=== PATIENT | female | born 1990 | race African-American/Black ===

== ENCOUNTER 2018-08-27 10:51 | Emergency (ER) | payer SELFPAY ==
[2018-08-27] MEDS ORDERED: PHENYTOIN SODIUM INJ/PF 250 MG/5 ML SDV IV ONE (10:59)
--- NOTE | 2018-08-27 11:00 | ER Document Report ---
ED General - General Stated Complaint: SEIZURES Time Seen by Provider: 08/27/18 10:58 Mode of Arrival: Medic Information source: Friend, Emergency Med Personnel Notes: 27-year-old female with known seizure disorder on Dilantin presents after a seizure while driving to work just prior to arrival. EMS reports that the patient's girlfriend called them after the patient began seizing. Patient's girlfriend tried to lower her to the ground but states that they both fell backwards and the patient struck her head on the concrete several times. Patient has been compliant with her Dilantin which is 300 mg nightly. She states that she recently moved from [place] and is trying to get neurology care. They did suggest on her last visit that she increase her Dilantin to 360 mg but she has been unable to do so. She denies any recent illness but reports constipation, abdominal discomfort. Patient complaining of an aching headache. - HPI Onset: Just prior to arrival Onset/Duration: Sudden Quality of pain: Achy Severity: Mild Associated symptoms: Headache, Other - Abdominal pain, constipation Exacerbated by: Denies Relieved by: Denies Similar symptoms previously: Yes Recently seen / treated by doctor: Yes - Related Data Allergies/Adverse Reactions: levetiracetam [From [facility]] Allergy (Verified 08/27/18 11:29) Past Medical History - General Information source: Patient, Friend - Social History Smoking Status: Never Smoker Frequency of alcohol use: None Drug Abuse: None Lives with: Spouse/Significant other Family History: Reviewed & Not Pertinent Patient has suicidal ideation: No Patient has homicidal ideation: No Neurological Medical History: Reports: Hx Seizures Review of Systems - Review of Systems Notes: REVIEW OF SYSTEMS: CONSTITUTIONAL : Denies fever, chills, or sweats. Denies recent illness. Denies weight loss, recent hospitalizations. EENT: Denies visual changes, eye pain. Denies sore throat, oral lesions, difficulty swallowing. CARDIOVASCULAR: Denies chest pain. Denies palpitations. Denies lower extremity edema. RESPIRATORY: Denies cough. Denies shortness of breath, wheezing. GASTROINTESTINAL: Denies abdominal distention. Denies nausea, vomiting, or diarrhea. Denies blood in vomitus, stools, or per rectum. Denies black, tarry stools. Denies constipation. GENITOURINARY: Denies difficulty urinating, painful urination, frequency, blo od in urine, or vaginal discharge. MUSCULOSKELETAL: Denies back or neck pain or stiffness. Denies joint pain or swelling. SKIN: Denies rash, lesions or sores. HEMATOLOGIC : Denies easy bruising or bleeding. LYMPHATIC: Denies swollen glands. NEUROLOGICAL: Denies confusion or altered mental status. Denies loss of consciousness. Denies dizziness or lightheadedness. Denies weakness or par alysis. Denies problems difficulty with ambulation, slurred speech. Denies sensory loss, numbness, or tingling. PSYCHIATRIC: Denies anxiety or stress. Denies depression, suicidal ideation, or homicidal ideation. Denies visual or auditory hallucinations. Physical Exam - Vital signs Vitals: Pulse Resp BP Pulse Ox 97 18 104/54 L 100 08/27/18 11:40 08/27/18 11:40 08/27/18 11:40 08/27/18 11:40 - Notes Notes: PHYSICAL EXAMINATION: GENERAL: Somnolent but arousable HEAD: Atraumatic, normocephalic. EYES: Pupils equal round and reactive to light, extraocular movements intact, conjunctiva are normal. ENT: Nares patent, oropharynx clear without exudates. Moist mucous membranes. NECK: Normal range of motion, supple without lymphadenopathy LUNGS: Breath sounds clear to auscultation bilaterally and equal. No wheezes rales or rhonchi. HEART: Regular rate and rhythm without murmurs ABDOMEN: Soft, nontender, nondistended abdomen. No guarding, no rebound. No masses appreciated. Female : deferred Musculoskeletal: Normal range of motion, no pitting or edema. No cyanosis. NEUROLOGICAL: Cranial nerves grossly intact. Slowed speech speech, normal gait. Normal sensory, motor exams PSYCH: Normal mood, normal affect. SKIN: Warm, Dry, normal turgor, no rashes or lesions noted. Course - Re-evaluation Re-evalutation: 08/27/18 12:16 Laboratory 08/27/18 08/27/18 08/27/18 11:00 11:00 11:00 WBC 5.8 RBC 4.69 Hgb 12.9 Hct 39.7 MCV 85 MCH 27.6 MCHC 32.6 RDW 15.9 H Plt Count 317 Seg Neutrophils % 59.6 Lymphocytes % 28.0 Monocytes % 6.8 Eosinophils % 5.0 Basophils % 0.6 Absolute Neutrophils 3.4 Absolute Lymphocytes 1.6 Absolute Monocytes 0.4 Absolute Eosinophils 0.3 Absolute Basophils 0.0 Sodium 142.0 Potassium 4.3 Chloride 110 H Carbon Dioxide 20 L Anion Gap 12 BUN 7 Creatinine 0.86 Est GFR ( Amer) > 60 Est GFR (Non-Af Amer) > 60 Glucose 102 Calcium 9.3 Total Bilirubin 0.4 Direct Bilirubin 0.3 Neonat Total Bilirubin Not Reportable Neonat Direct Bilirubin Not Reportable Neonat Indirect Bili Not Reportable AST 35 ALT 7 L Alkaline Phosphatase 74 Total Protein 8.3 H Albumin 4.7 Beta HCG, Quant < 2.39 Total Beta HCG NEGATIVE Phenytoin 3.7 L 08/27/18 12:19 08/27/18 12:21 08/27/18 13:26 Acute Abdomen Series 08/27/18 12:09 IMPRESSION: NO RADIOGRAPHIC EVIDENCE FOR ACUTE ABDOMINAL DISEASE. CONSTIPATION. Head CT 08/27/18 12:09 IMPRESSION: NORMAL BRAIN CT WITHOUT CONTRAST. EVIDENCE OF ACUTE STROKE: NO. Temp Pulse Resp BP Pulse Ox 97 18 104/54 L 100 08/27/18 11:40 08/27/18 11:40 08/27/18 11:40 08/27/18 11:40 08/27/18 17:52 27-year-old female with known seizure disorder presents after a seizure just prior to arrival. Reports that she is taking 300 mg of Dilantin nightly. Recently has moved here from [place] and does not have neurology follow-up. Denies any recent illness but reports constipation and difficulty with bowel movements. Vital signs reviewed upon arrival shows mild hypotension. And EMS reports patient received 5 mg of IM Versed, 2 mg of IV Ativan. Patient initially somnolent, consistent with postictal state. Dilantin level was markedly low. Patient did get a Dilantin load of 300 mg IV. Social work consult placed for help with neurology follow-up. Findings discussed with the patient and her partner. Increase Dilantin to 200 mg twice daily. Patient was evaluated and treated as appropriate for the patient's presenting symptoms and complaint, with consideration of any critical or life threatening conditions that may be associated with their obtained history and exam as noted above. All results were discussed with patient. Patient provided the opportunity to ask questions, and express concerns. Patient was educated on treatments based on their presumed diagnosis as noted above. At this time we will discharge the patient with return precautions and follow-up recommendations. Verbal discharge instructions given a the bedside. Medication warnings reviewed. Patient is in agreement with this plan and has verbalized understanding of return precautions. After careful consideration I feel that that patient can be safely discharged from the emergency department, they were advised to followup with a primary care physician in 2-3 days. Dictation on this chart was performed using voice recognition software and may result in unintended grammatical, spelling, syntax or errors. 08/27/18 18:00 Prescription written in error and patient contacted regarding taking the me dication twice a day 200 mg p.o. - Vital Signs Vital signs: Temp Pulse Resp BP Pulse Ox 97 18 104/54 L 100 08/27/18 11:40 08/27/18 11:40 08/27/18 11:40 08/27/18 11:40 - Laboratory Result Diagrams: 08/27/18 11:00 08/27/18 11:00 Laboratory results interpreted by me: 08/27/18 08/27/18 08/27/18 11:00 11:00 11:00 RDW 15.9 H Chloride 110 H Carbon Dioxide 20 L ALT 7 L Total Protein 8.3 H Phenytoin 3.7 L - Diagnostic Test Radiology reviewed: Image reviewed, Reports reviewed - EKG Interpretation by Ne EKG shows normal: Sinus rhythm Rate: Tachycardia Rhythm: NSR When compared to previous EKG there are: Previous EKG unavailable Discharge - Discharge Clinical Impression: Subtherapeutic serum dilantin level, Seizure Headache Qualifiers: Headache type: unspecified Headache chronicity pattern: unspecified pattern Intractability: not intractable Qualified Code(s): R51 - Headache Constipation Qualifiers: Constipation type: unspecified constipation type Qualified Code(s): K59.00 - Constipation, unspecified Condition: Good Disposition: HOME, SELF-CARE Instructions: Headache ([facility]), Seizure, Known Epileptic ([facility]) Additional Instructions: Your Dilantin level was below the therapeutic range. Please take your medication as prescribed. We will increase her Dilantin to 400 mg daily. Our social work case manager is working on getting you a neurology appointment. He will first have to establish primary care which she is also working on. She will be in contact with you in the next 1 to 2 days. Prescriptions: Phenytoin Sodium Extended [Dilantin 100 mg Capsule.er] 300 mg PO BID #90 capsule Polyethylene Glycol 3350 [Miralax Powder 17 gm/Packet] 17 gm PO DAILY #10 powd.pack Forms: Return to Work
[2018-08-27] MEDS ORDERED: DIAZEPAM INJ 10 MG/2 ML DISP.SYRIN ONE (11:12)
[2018-08-27] MEDS ORDERED: LORAZEPAM INJ 2 MG/1 ML VIAL ONE (11:12)
[2018-08-27 11:20] LABS: ABSOLUTE EOSINOPHILS # (AUTO) 0.3 10^3/uL (0.0-0.6); ABSOLUTE LYMPHOCYTES (AUTO) 1.6 10^3/uL (0.5-4.7); ABSOLUTE MONOCYTES (AUTO) 0.4 10^3/uL (0.1-1.4); ABSOLUTE NEUT (AUTO) 3.4 10^3/uL (1.7-8.2); BASOPHILS % (AUTO) 0.6 % (0-2); HEMATOCRIT 39.7 % (36.0-47.0); HEMOGLOBIN 12.9 g/dL (12.0-15.5); MEAN CORPUSCULAR HEMOGLOBIN 27.6 pg (27.0-33.4); MEAN CORPUSCULAR HGB CONC 32.6 g/dL (32.0-36.0); MEAN CORPUSCULAR VOLUME 85 fl (80-97); MONOCYTES % (AUTO) 6.8 % (3-13); PLATELET COUNT 317 10^3/uL (150-450); RED BLOOD COUNT 4.69 10^6/uL (3.72-5.28); RED CELL DISTRIBUTION WIDTH 15.9 % (11.5-14.0); SEGMENTED NEUTROPHILS % (AUTO) 59.6 % (42-78); TOTAL CELLS COUNTED % (AUTO) 100 %; WHITE BLOOD COUNT 5.8 10^3/uL (4.0-10.5)
[2018-08-27 11:44] LABS: ALANINE AMINOTRANSFERASE 7 U/L (9-52); ALBUMIN 4.7 g/dL (3.5-5.0); ALKALINE PHOSPHATASE 74 U/L (38-126); ANION GAP 12 (5-19); ASPARTATE AMINO TRANSFERASE 35 U/L (14-36); BILIRUBIN,DIRECT 0.3 mg/dL (0.0-0.4); BILIRUBIN,TOTAL 0.4 mg/dL (0.2-1.3); BLOOD UREA NITROGEN 7 mg/dL (7-20); CALCIUM 9.3 mg/dL (8.4-10.2); CARBON DIOXIDE 20 mmol/L (22-30); CHLORIDE 110 mmol/L (98-107); GLUCOSE 102 mg/dL (75-110); POTASSIUM 4.3 mmol/L (3.6-5.0); TOTAL PROTEIN 8.3 g/dL (6.3-8.2)
[2018-08-27 11:46] VITALS: BP 104/54
--- NOTE | 2018-08-27 12:45 | RADIOLOGY REPORT (SQ) ---
EXAM DESCRIPTION: CT HEAD WITHOUT COMPLETED DATE/TIME: 08/27/2018 12:31 pm REASON FOR STUDY: trauma after seizure COMPARISON: None. TECHNIQUE: Axial images acquired through the brain without intravenous contrast. Images reviewed wi th bone, brain and subdural windows. Additional sagittal and coronal reconstructions were generated. Images stored on PACS. All CT scanners at this facility use dose modulation, iterative reconstruction, and/or weight based d osing when appropriate to reduce radiation dose to as low as reasonably achievable (ALARA). [facility]: Dose Right [facility]: CareDose [facility]: Dose Right [facility]: Teradose 4D [facility]: Smart xTurion RADIATION DOSE: CT Rad equipment meets quality standard of care and radiation dose reduction techniq ues were employed. CTDIvol: 53.2 mGy. DLP: 991 mGy-cm. mGy. LIMITATIONS: None. FINDINGS: VENTRICLES: Normal size and contour. CEREBRUM: No masses. No hemorrhage. No midline shift. No evidence for acute infarction. Normal gra y/white matter differentiation. No areas of low density in the white matter. CEREBELLUM: No masses. No hemorrhage. No alteration of density. No evidence for acute infarction. EXTRAAXIAL SPACES: No fluid collections. No masses. ORBITS AND GLOBE: No intra- or extraconal masses. Normal contour of globe without masses. CALVARIUM: No fracture. PARANASAL SINUSES: No fluid or mucosal thickening. SOFT TISSUES: No mass or hematoma. OTHER: No other significant finding. IMPRESSION: NORMAL BRAIN CT WITHOUT CONTRAST. EVIDENCE OF ACUTE STROKE: NO. COMMENT: Quality ID # [id number]: Final reports with documentation of one or more dose reduction techniques (e.g., Automated exposure control, adjustment of the mA and/or kV according to patient size, use of iterative reconstruction technique) TECHNICAL DOCUMENTATION: JOB ID: [id number] [employer]- All Rights Reserved Reading location - IP/workstation name: [email or web address]
--- NOTE | 2018-08-27 13:05 | RADIOLOGY REPORT (SQ) ---
EXAM DESCRIPTION: ACUTE ABDOMEN SERIES COMPLETED DATE/TIME: 08/27/2018 12:50 pm REASON FOR STUDY: abd pain constipation COMPARISON: None. NUMBER OF VIEWS: Three views. TECHNIQUE: Frontal chest, supine abdomen and upright/decubitus abdomen radiographic images acquired. LIMITATIONS: None. FINDINGS: CHEST: Lungs clear of infiltrates. FREE AIR: None. No abnormal gas collections. BOWEL GAS PATTERN: Nonobstructive pattern. No dilated loops or air fluid levels. CONSTIPATION: mild. CALCIFICATIONS: No suspicious calcifications. HARDWARE: None in the abdomen. SOFT TISSUES: No gross mass or suggestion of organomegaly. BONES: No acute fracture. No worrisome bone lesions. OTHER: No other significant finding. IMPRESSION: NO RADIOGRAPHIC EVIDENCE FOR ACUTE ABDOMINAL DISEASE. CONSTIPATION. TECHNICAL DOCUMENTATION: JOB ID: [id number] [employer]- All Rights Reserved Reading location - IP/workstation name: [email or web address]
--- NOTE | 2018-08-27 13:17 | EKG REPORT ---
SEVERITY:- OTHERWISE NORMAL ECG - SINUS TACHYCARDIA : Confirmed by: Jerry Mckenna MD 27-Aug-2018 13:16:54
== END 2018-08-27 14:00 | disposition home or self-care (01) ==
LOC: ER 10:51
DX: R56.9 Unspecified convulsions (principal); R51 Headache; K59.00 Constipation, unspecified; Z79.899 Other long term (current) drug therapy
CPT/HCPCS: 99285; 96372; 96374; 36415; 84702; 80185; 85025; 80053; 74022; 70450; 93005; 93010; J2060; J1165

== ENCOUNTER 2018-09-10 13:52 | Emergency (ER) | payer OTHER ==
[2018-09-10] MEDS ORDERED: LORAZEPAM INJ 2 MG/1 ML VIAL ONE (14:02)
[2018-09-10] MEDS ORDERED: PHENYTOIN SODIUM INJ/PF 250 MG/5 ML SDV IV ONE (14:03)
--- NOTE | 2018-09-10 14:18 | ER Document Report ---
ED Seizure - General Stated Complaint: POSSIBLE SEIZURE Time Seen by Provider: 09/10/18 13:59 - HPI Notes: Patient is a 27-year-old female that presents to the emergency department for chief complaint of seizures. Patient has a history of epilepsy and is currently on Dilantin. Her last seizure was about 2 weeks ago and she was evaluated in the emergency room. Patient's partner is at bedside stating she has been compliant with all medications. She believes she has not missed any doses. They are in the process of getting patient established with a local neurologist. Patient had 5 witnessed seizures by EMS lasting 30 seconds to 2 minutes in duration. She did not have recovery of postictal state in between her seizures. Patient had no reported injury or fall during the seizures. HPI provided by EMS and patient's partner Past Medical History: Epilepsy Past Surgical History: Reviewed in chart Social History: Reviewed in chart Family History: Reviewed and noncontributory for presenting illness Allergies: Reviewed, see documented allergy list. REVIEW OF SYSTEMS: Unable to obtain because of postictal state PHYSICAL EXAMINATION: Vital signs reviewed, nursing noted reviewed. GENERAL: Somnolent, postictal, well-nourished and in no acute distress. HEAD: Atraumatic, normocephalic. EYES: Eyes appear normal, extraocular movements intact, sclera anicteric, conjunctiva are normal. ENT: No lingual laceration. Nares patent, oropharynx clear without exudates. Moist mucous membranes. NECK: Normal range of motion, supple without lymphadenopathy LUNGS: Breath sounds clear to auscultation bilaterally and equal. No wheezes rales or rhonchi. HEART: Regular rate and rhythm without murmurs ABDOMEN: Soft, nontender, normoactive bowel sounds. No rebound, guarding, or rigidity. No masses appreciated. EXTREMITIES: Nontender, good range of motion, no pitting or edema. NEUROLOGICAL: Somnolent, following verbal commands, not speaking. Moves all extremities spontaneously Motor and sensory grossly intact on exam. SKIN: Warm, Dry, normal turgor, no rashes or lesions noted on exposed skin - Related Data Allergies/Adverse Reactions: levetiracetam [From [facility]] Allergy (Verified 08/27/18 11:29) Past Medical History - Social History Smoking Status: Never Smoker Family History: Reviewed & Not Pertinent Neurological Medical History: Reports: Hx Seizures Renal/ Medical History: Denies: Hx Peritoneal Dialysis Physical Exam - Vital signs Vitals: Resp BP Pulse Ox 21 H 118/79 98 09/10/18 14:02 09/10/18 14:02 09/10/18 14:02 Course - Re-evaluation Re-evalutation: 09/10/18 14:11 Vitals reviewed. Nursing notes reviewed. Patient presented having a seizure which stopped prior to me entering the room. She has received 2 mg IM Ativan, 4 mg IV Ativan, and 5 mg IV Versed by EMS prior to arrival in the emergency room. Patients chart review shows a subtherapeutic Dilantin level at her previous visit. She will be given a loading dose IV of Dilantin for her continued seizures. Patient placed in seizure precautions and on cardiac monitoring. Her EKG shows tachycardia without ischemic changes. 09/10/18 15:14 Patient reevaluated. She is still very postictal and sedated from medications. She will wake to tactile stimuli and will mumble her name. She is protecting her airway and oxygenating on room air. Patient has not had any seizure activity since she initially arrived in the emergency room which was just over 1 hour ago. Patient has had about 8 or 9 seizures today without resolution of postictal state in between which is qualifying her as status epilepticus. This is the second time she has had this presentation in 2 weeks. Patient is having slow recovery of postictal state and will be transferred to [facility] for further neurologic assessment. I am currently awaiting a callback from their admitting provider. 09/10/18 15:37 Patient's lab work today shows subtherapeutic Dilantin levels. I am suspicious she is not taking her medication as directed. Her level today is lower than her previous visit to the emergency room and her dose was increased at that time. She has received Dilantin loading dose IV. Still awaiting callback from [facility]. Laboratory 09/10/18 09/10/18 09/10/18 14:32 14:32 14:32 WBC 5.5 RBC 4.16 Hgb 11.4 L Hct 34.6 L MCV 83 MCH 27.5 MCHC 33.0 RDW 15.9 H Plt Count 323 Seg Neutrophils % 68.7 Lymphocytes % 22.7 Monocytes % 5.7 Eosinophils % 2.2 Basophils % 0.7 Absolute Neutrophils 3.8 Absolute Lymphocytes 1.3 Absolute Monocytes 0.3 Absolute Eosinophils 0.1 Absolute Basophils 0.0 Sodium 140.8 Potassium 4.3 Chloride 110 H Carbon Dioxide 23 Anion Gap 8 BUN 7 Creatinine 0.75 Est GFR ( Amer) > 60 Est GFR (Non-Af Amer) > 60 Glucose 90 Calcium 9.2 Phenytoin < 3.0 L 09/10/18 16:05 Patient's care was discussed with Dr. Yonathan Drake who has accepted patient for transfer to [facility], admission to stepdown unit. - Vital Signs Vital signs: Temp Pulse Resp BP Pulse Ox 23 H 123/75 100 09/10/18 14:32 09/10/18 14:32 09/10/18 14:32 - Laboratory Result Diagrams: 09/10/18 14:32 09/10/18 14:32 Laboratory results interpreted by me: 09/10/18 09/10/18 09/10/18 14:32 14:32 14:32 Hgb 11.4 L Hct 34.6 L RDW 15.9 H Chloride 110 H Phenytoin < 3.0 L - EKG Interpretation by Me Additional EKG results interpreted by me: 09/10/18 14:18 Interpreted by myself 1406:Sinus tachycardia, rate 108, normal axis, no ectopy, no STEMI Discharge - Discharge Clinical Impression: Status epilepticus, Subtherapeutic serum dilantin level Condition: Stable Disposition: [facility]
[2018-09-10 14:46] LABS: ABSOLUTE EOSINOPHILS # (AUTO) 0.1 10^3/uL (0.0-0.6); ABSOLUTE LYMPHOCYTES (AUTO) 1.3 10^3/uL (0.5-4.7); ABSOLUTE MONOCYTES (AUTO) 0.3 10^3/uL (0.1-1.4); ABSOLUTE NEUT (AUTO) 3.8 10^3/uL (1.7-8.2); BASOPHILS % (AUTO) 0.7 % (0-2); EOSINOPHILS % (AUTO) 2.2 % (0-6); HEMATOCRIT 34.6 % (36.0-47.0); HEMOGLOBIN 11.4 g/dL (12.0-15.5); LYMPHOCYTES % (AUTO) 22.7 % (13-45); MEAN CORPUSCULAR HEMOGLOBIN 27.5 pg (27.0-33.4); MEAN CORPUSCULAR VOLUME 83 fl (80-97); MONOCYTES % (AUTO) 5.7 % (3-13); PLATELET COUNT 323 10^3/uL (150-450); RED BLOOD COUNT 4.16 10^6/uL (3.72-5.28); RED CELL DISTRIBUTION WIDTH 15.9 % (11.5-14.0); SEGMENTED NEUTROPHILS % (AUTO) 68.7 % (42-78); TOTAL CELLS COUNTED % (AUTO) 100 %; WHITE BLOOD COUNT 5.5 10^3/uL (4.0-10.5)
[2018-09-10 15:16] LABS: ANION GAP 8 (5-19); BLOOD UREA NITROGEN 7 mg/dL (7-20); CALCIUM 9.2 mg/dL (8.4-10.2); CARBON DIOXIDE 23 mmol/L (22-30); CHLORIDE 110 mmol/L (98-107); GLUCOSE 90 mg/dL (75-110); POTASSIUM 4.3 mmol/L (3.6-5.0); SODIUM 140.8 mmol/L (137-145)
[2018-09-10 21:23] VITALS: BP 113/76
--- NOTE | 2018-09-10 23:33 | EKG REPORT ---
SEVERITY:- OTHERWISE NORMAL ECG - SINUS TACHYCARDIA : Confirmed by: Elena Hansen MD 10-Sep-2018 23:32:35
== END 2018-09-10 20:48 | disposition left against medical advice (07) ==
LOC: ER 13:52
DX: G40.901 Epilepsy, unspecified, not intractable, with status epilepticus (principal); Z79.899 Other long term (current) drug therapy; R00.0 Tachycardia, unspecified; Z53.20 Procedure and treatment not carried out because of patient's decision for unspecified reasons; Z88.8 Allergy status to other drugs, medicaments and biological substances
CPT/HCPCS: 93005; 99285; 96374; 36415; 80185; 85025; 80048; 93010; J1165

== ENCOUNTER 2018-11-01 11:54 | Emergency (ER) | payer OTHER ==
[2018-11-01] MEDS ORDERED: ONDANSETRON 4 MG TAB.RAPDIS PO ONE (12:16)
--- NOTE | 2018-11-01 12:22 | ER Document Report ---
HPI - HPI Patient complains to provider of: sore throa Time Seen by Provider: 11/01/18 12:08 Onset: Other - 3 days Onset/Duration: Persistent Quality of pain: Achy, Burning Pain Level: 4 Context: 27-year-old female presents emergency department with complaints of sore throat for the past 3 days. She reports her throat tickles makes her cough and then she vomits. She reports she has vomited approximately 7 times. Last time was this morning at 04 100. Reports some nausea. Denies diarrhea but reports fever of 102.3. She reports that was this morning at 0400 she took Tylenol and NyQuil. She reports no recent exposure to strep that she knows of. Reports she has a history of strep in the past. Associated Symptoms: Nonproductive cough, Vomiting, Sore throat Exacerbated by: Denies Relieved by: Denies Similar symptoms previously: Yes Recently seen / treated by doctor: No - REPRODUCTIVE Reproductive: DENIES: : Past Medical History - General Information source: Patient Last Menstrual Period: 10/16/18 - Social History Smoking Status: Current Every Day Smoker Cigarette use (# per day): Yes Frequency of alcohol use: None Drug Abuse: None Occupation: none Lives with: Family Family History: Reviewed & Not Pertinent Patient has suicidal ideation: No Patient has homicidal ideation: No Neurological Medical History: Reports: Hx Seizures Renal/ Medical History: Denies: Hx Peritoneal Dialysis Surgical Hx: Negative Vertical Provider Document - CONSTITUTIONAL Agree With Documented VS: Yes Exam Limitations: No Limitations General Appearance: WD/WN, No Apparent Distress - INFECTION CONTROL TRAVEL OUTSIDE OF THE [place] IN LAST 30 DAYS: No - HEENT HEENT: Atraumatic, Normocephalic, Pharyngeal Erythema - good airway, clear voice, opens mouth wide, no trismus, no ludwigs. negative: Conjuctival Injection, Pharyngeal Exudate - NECK Neck: Normal Inspection, Supple. negative: Lymphadenopathy-Left, Lymphadenopathy-Right - RESPIRATORY Respiratory: Breath Sounds Normal, No Respiratory Distress - CARDIOVASCULAR Cardiovascular: Regular Rate - GI/ABDOMEN Gastrointestinal: Abdomen Soft, Abdomen Non-Tender - MUSCULOSKELETAL/EXTREMETIES Musculoskeletal/Extremeties: MAKENZIE OLSON - NEURO Level of Consciousness: Awake, Alert, Appropriate Motor/Sensory: No Motor Deficit - DERM Integumentary: Warm, Dry, No Rash Course - Re-evaluation Re-evalutation: 11/01/18 12:21 A 27-year-old female that presents with sore throat for the past 3 days with a history of strep. Denies exposure to strep. Reports her throat is burning achy but she is swallowing drinking lots of water without problems. She reports her throat tickle she coughs and then she vomits afterwards. She reports vomiting at least 7 times. Last vomit was at approximately 04 100 this morning. Patient speaking in a clear voice no distress. Strep swab obtained. 11/01/18 13:07 Strep test negative patient swallowing without problems instructed throat culture pending. Instructed to follow-up with her primary care provider. She verbalized understanding to all instructions Dictation of this chart was performed using voice recognition software; therefore, there may be some unintended grammatical errors. - Vital Signs Vital signs: Temp Pulse Resp BP Pulse Ox 98.6 F 91 16 131/63 H 100 11/01/18 11:58 11/01/18 11:58 11/01/18 11:58 11/01/18 11:58 11/01/18 11:58 Discharge - Discharge Clinical Impression: Sore throat Condition: Stable Disposition: HOME, SELF-CARE Instructions: Sore Throat ([facility]) Additional Instructions: *You have been evaluated for a sore throat Your strep test was negative today. A throat culture is pending. Should you need antibiotics you will be contacted *Warm salt water gargles and throat lozenges for comfort for your pain, take Tylenol or Motrin as indicated *Do not let anyone drink/eat after you *Good hand washing *Follow-up with a primary care provider within 1 week for recheck *Return to ED for worsening condition change, needs, unable to swallow worsening symptoms Forms: Elevated Blood Pressure Referrals: NAHOMI BRYAN MD [Primary Care Provider] - Follow up in 1 week
[2018-11-01 13:16] VITALS: BP 118/68
== END 2018-11-01 13:17 | disposition home or self-care (01) ==
LOC: ER 11:54
DX: J02.9 Acute pharyngitis, unspecified (principal); R05 Cough; R11.2 Nausea with vomiting, unspecified; R50.9 Fever, unspecified; F17.210 Nicotine dependence, cigarettes, uncomplicated
CPT/HCPCS: 99282; 87070; 87880; 87077; S0119